=== PATIENT | female | born 1980 | race Caucasian/White ===

== ENCOUNTER 2016-06-17 13:42 | Emergency (ER) | payer MEDICAID ==
[~2016-06-17] VITALS: Ht 142.2 cm; Wt 69.0 kg
[~2016-06-17 13:42] MED LIST: AMIN1TAB; FERR27TA; PREN1TAB49
[2016-06-17 13:55] VITALS: Ht 142.2 cm; Wt 69.0 kg
[2016-06-17] MEDS ORDERED: GUAI120S26 PO (14:18)
[2016-06-17] MEDS ORDERED: IBUP-1542 PO (14:18)
--- NOTE | 2016-06-17 14:23 | ERD ---
ER Documentation Chief Complaint Date/Time DATE: 06/17/16 TIME: 14:20 Chief Complaint cough and congestion with fever & galvan x 3 days HPI 36-year-old female with no significant past medical history presents to the ED complaining of a productive cough and headache that started 3 days ago. States that her and son are also sick with similar symptoms. States that she has not taken any medications for her symptoms. Denies any fever, chills, body aches, dyspnea on exertion, orthopnea, leg swelling, chest pain, shortness of breath, abdominal pain, nausea, vomiting. States that she has had menopause for the last 4 years. ROS All systems reviewed and are negative except as per history of present illness. Medications Home Meds Active Scripts Mwhehepabuf-L-Bzrzrkizsn Hb* (Guaifenesin* DM Syrup) 120 Ml Syrup, 10 ML PO Q4H Y for COUGH, #120 ML Prov:PATO MCKEON PA-C 06/17/16 Ibuprofen* (Motrin*) 600 Mg Tab, 600 MG PO Q6, #30 TAB Prov:PATO MCKEON PA-C 06/17/16 Reported Medications Amino Acids/Calcium (Calcimin-300 Tablet) 1 Tab Tablet 03/22/10 Ferrous Sulfate (Iron) 1 Tab Tablet 03/22/10 Vits W-Ca,Fe,Fa(<1MG) () 1 Tab Tablet 03/22/10 Allergies Allergies: Coded Allergies: No Known Allergies (Verified Allergy, Mild, 02/09/10) PMhx/Soc History of Surgery: Yes () Hx Alcohol Use: No Hx Substance Use: No Hx Tobacco Use: No Physical Exam Vitals Vital Signs Date Time Temp Pulse Resp B/P Pulse Ox O2 Delivery O2 Flow Rate FiO2 06/17/16 13:55 97.9 82 18 133/74 98 Physical Exam Const: Cis-kvj-sadzlaijj, well-nourished. In no acute distress. Head: Atraumatic, normocephalic Eyes: Normal Conjunctiva without injection. No purulent discharge. PERRL. EOMI ENT: Normal external ear. Ear canal without erythema. Tympanic membrane pearly leyva without effusion or bulging. Nasal canal clear with normal turbinates. Moist oropharynx without tonsillar exudates. Non-erythematous pharynx. Uvula midline. No drooling. No trismus. Neck: Full range of motion. No meningismus. No cervical lymphadenopathy. Resp: Clear to auscultation bilaterally. No wheezing, rhonchi, rales, or crackles. No accessory muscle use. No retractions. Cardio: Regular rate and rhythm. No murmurs, rubs or gallops. Abd: Soft, non tender, non distended. Normal bowel sounds. No palpable masses. No rebound tenderness. No guarding. Skin: No petechiae or rashes Back: No midline tenderness. No CVA tenderness. Ext: No cyanosis, or edema. Neur: Awake and alert. Psych: Normal Mood and Affect Procedures/MDM This is a 36-year-old female with no significant past medical history presents to the ED complaining of a productive cough and headache. Patient is afebrile and nontoxic-appearing. Patient has normal vital signs. This patient presents to the ED with symptoms consistent with a viral acute upper respiratory infection. Patient is afebrile and has normal vital signs. Patient's physical exam include lungs which were clear to auscultation and a normal pulse oximetry. There is a low suspicion for pneumonia, atypical SC, cardiac tamponade , pneumothorax, pulmonary embolism, epiglottitis, otitis media, otitis externa, viral/strep pharyngitis, sinusitis, peritonsillar abscess, mastoiditis, retropharyngeal abscess, meningitis, sepsis, acute abdomen or other emergent conditions. Fluids, rest, and symptomatic treatment are recommended for the management of patient's symptoms. Discharge medications: Ibuprofen, guaifenesin DM Patient was instructed to return to the ED for any new or worsening symptoms. They should otherwise follow up with the primary care provider within 1-2 days. The patient's questions were answered at the time of discharge. Patient understood and agreed with discharge management. Departure Diagnosis: Primary Impression: Viral syndrome Condition: Stable Patient Instructions: Viral Syndrome (Adult) Referrals: COMMUNITY CLINICS YOU HAVE RECEIVED A MEDICAL SCREENING EXAM AND THE RESULTS INDICATE THAT YOU DO NOT HAVE A CONDITION THAT REQUIRES URGENT TREATMENT IN THE EMERGENCY DEPARTMENT. FURTHER EVALUATION AND TREATMENT OF YOUR CONDITION CAN WAIT UNTIL YOU ARE SEEN IN YOUR DOCTORS OFFICE WITHIN THE NEXT 1-2 DAYS. IT IS YOUR RESPONSIBILITY TO MAKE AN APPOINTMENT FOR FOLOW-UP CARE. IF YOU HAVE A PRIMARY DOCTOR --you should call your primary doctor and schedule an appointment IF YOU DO NOT HAVE A PRIMARY DOCTOR YOU CAN CALL OUR PHYSICIAN REFERRAL HOTLINE AT IF YOU CAN NOT AFFORD TO SEE A PHYSICIAN YOU CAN CHOSE FROM THE FOLLOWING [facility] [address] [facility] [address] [facility] [address] [facility] [address] [facility] [address] [facility]. [facility] [address] [facility]. [facility] YOU HAVE RECEIVED A MEDICAL SCREENING EXAM AND THE RESULTS INDICATE THAT YOU DO NOT HAVE A CONDITION THAT REQUIRES URGENT TREATMENT IN THE EMERGENCY DEPARTMENT. FURTHER EVALUATION AND TREATMENT OF YOUR CONDITION CAN WAIT UNTIL YOU ARE SEEN IN YOUR DOCTORS OFFICE WITHIN THE NEXT 1-2 DAYS. IT IS YOUR RESPONSIBILITY TO MAKE AN APPOINTMENT FOR FOLOW-UP CARE. IF YOU HAVE A PRIMARY DOCTOR --you should call your primary doctor and schedule and appointment IF YOU DO NOT HAVE A PRIMARY DOCTOR YOU CAN CALL OUR PHYSICIAN REFERRAL HOTLINE AT . IF YOU CAN NOT AFFORD TO SEE A PHYSICIAN YOU CAN CHOSE FROM THE FOLLOWING [facility] INSTITUTIONS: [facility] [place] [address] [place] [address] [facility] [address] [place] [address] [facility] [address] [place] [address] [facility] Additional Instructions: Visite a villareal royer roe para un EXAMEN.Regrese a estas instalaciones si no se mejora abilio esperbamos o abilio le gaylas. PATO MCKEON PA-C Jun 17, 2016 14:23
== END 2016-06-17 14:19 | disposition home or self-care (01) ==
LOC: E/R 13:42
DX: B34.9 Viral infection, unspecified (principal)
CPT/HCPCS: 99283

== ENCOUNTER 2016-12-01 07:17 | Emergency (ER) | payer MEDICAID ==
[~2016-12-01] VITALS: Ht 154.9 cm; Wt 67.0 kg
[~2016-12-01 07:17] MED LIST changes: +BUTA1CAP39 PO; +GUAI120S26 PO; +IBUP-1542 PO
[2016-12-01 07:20] VITALS: Ht 154.9 cm; Wt 67.0 kg
[2016-12-01] MEDS ORDERED: ONDANSETRON 4 MG INJ IV STA (07:34)
[2016-12-01] MEDS ORDERED: morphine 4 MG/ML VIAL IV STA (07:34)
[2016-12-01] MEDS ORDERED: FAMOTIDINE 20 MG INJ IV STA (07:34)
[2016-12-01 08:09] LABS: ADD SCAN DIFF NO
[2016-12-01 08:15] LABS: BASOPHILS % 0.3 % (0.0-2.0); EOSINOPHILS # 0.1 10^3/ul (0.0-0.5); EOSINOPHILS % 1.1 % (0.0-7.0); HEMOGLOBIN 14.5 g/dl (12.0-16.0); LYMPHOCYTES # 2.1 10^3/ul (0.8-2.9); LYMPHOCYTES % 33.9 % (15.0-51.0); MEAN CORPUSCULAR HEMOGLOBIN 28.5 pg (29.0-33.0); MEAN CORPUSCULAR HGB CONC 33.7 g/dl (32.0-37.0); MEAN CORPUSCULAR VOLUME 84.6 fl (82.0-101.0); MEAN PLATELET VOLUME 9.4 fl (7.4-10.4); MONOCYTE # 0.5 10^3/ul (0.3-0.9); MONOCYTES % 7.8 % (0.0-11.0); NEUTROPHIL # 3.5 10^3/ul (1.6-7.5); NEUTROPHILS % 56.6 % (39.0-77.0); PLATELET COUNT 261 10^3/UL (140-415); RED BLOOD COUNT 5.08 10^6/ul (4.20-5.40); RED CELL DISTRIBUTION WIDTH 11.9 % (11.5-14.5); WHITE BLOOD COUNT 6.2 10^3/ul (4.8-10.8)
[2016-12-01 08:22] LABS: ADD UMIC YES; UR ASCORBIC ACID NEGATIVE (NEGATIVE); UR BACTERIA FEW /HPF (NONE SEEN); UR BILIRUBIN (Dip) NEGATIVE (NEGATIVE); UR BLOOD (Dip) NEGATIVE (NEGATIVE); UR CLARITY SLIGHTLY CLOUDY (CLEAR); UR COLOR STRAW (YELLOW); UR GLUCOSE (Dip) NEGATIVE (NEGATIVE); UR KETONES (Dip) NEGATIVE (NEGATIVE); UR LEUKOCYTE ESTERASE (Dip) 1+ Leu/ul (NEGATIVE); UR NITRITE (Dip) NEGATIVE (NEGATIVE); UR RBC 0 /HPF (0-5); UR SPECIFIC GRAVITY (Dip) 1.009 (1.003-1.030); UR SQUAMOUS EPITHELIAL CELL FEW /HPF (FEW); UR TOTAL PROTEIN (Dip) NEGATIVE (NEGATIVE); UR UROBILINOGEN (Dip) NEGATIVE (NEGATIVE)
--- NOTE | 2016-12-01 08:42 | RADRPT ---
PROCEDURE: US Abdomen Limited . CLINICAL INDICATION: Abdominal pain TECHNIQUE: Multiple real-time images were acquired of the patient's right upper quadrant abdomen u tilizing a high resolution transducer. COMPARISON: None FINDINGS: The liver measures 18.6 cm and demonstrates a coarsened echogenicity. The gallbladder is filled with a moderate amount of bile. No shadowing echogenic stones or masses are seen in the gallbladder. T he gallbladder wall is not thickened at 1.0 mm. No pericholecystic fluid is noted. The common bile d uct measures 5.1 mm in diameter. The visualized portions of the proximal pancreas are unremarkable. The tail of the pancreas is not well visualized. Antegrade flow is seen in the portal vein. Right kidney measures 10.1 cm. Right kidney demonstrates a normal echogenicity. No hydronephrosis, masses or stones are noted. IMPRESSION: Diffuse fatty infiltration of a mildly enlarged liver. Tail of the pancreas not well visualized. If characterization of this structure is needed repeat exa m or CT/MRI is recommended. RPTAT: AA .Curry Young MD, MD Date Time Electronically viewed and signed by .Curry Young MD, MD on 12/01/2016 08:42 .P/
--- NOTE | 2016-12-01 08:49 | ERD ---
ER Documentation Chief Complaint Date/Time DATE: 12/01/16 TIME: 08:47 Chief Complaint RT UPPER QUADRANT PAIN X 4 DAYS WITH NAUSEA HPI This a 36-year-old female who presents emergency department today complaining of right-sided upper abdominal pain for the past 4 days and nausea and vomiting. States she is taking Pepto-Bismol with no improvement. States she does have some burning and pain with urination. Denies any fevers, diarrhea. ROS All systems reviewed and are negative except as per history of present illness. Medications Home Meds Active Scripts Acetaminophen* (Tylophen*) 500 Mg Capsule, 1 CAP PO Q6H Y for PAIN AND OR ELEVATED TEMP, #30 CAP Prov:ROLANDO KOENIG PA-C 12/01/16 Famotidine* (Pepcid*) 20 Mg Tablet, 20 MG PO BID for 10 Days, TAB Prov:ROLANDO KOENIG PA-C 12/01/16 Hydrocodone/Acetaminophen (Randolph 5-325 Tablet) 1 Each Tablet, 1 TAB PO Q6H Y for PAIN, #10 TAB Prov:ROLANDO KOENIG PA-C 12/01/16 Ondansetron Hcl* (Zofran*) 4 Mg Tablet, 4 MG PO Q6H for NAUSEA AND/OR VOMITING, #30 TAB Prov:ROLANDO KOENIG PA-C 12/01/16 Nitrofurantoin Monohyd Macrocr* (Macrobid*) 100 Mg Capsr, 100 MG PO BID for 7 Days, CAP Prov:ROLANDO KOENIG PA-C 12/01/16 Irgiwzjjhko-R-Drdsggqfav Hb* (Guaifenesin* DM Syrup) 120 Ml Syrup, 10 ML PO Q4H Y for COUGH, #120 ML Prov:PATO MCKEON PA-C 06/17/16 Ibuprofen* (Motrin*) 600 Mg Tab, 600 MG PO Q6, #30 TAB Prov:PATO MCKEON PA-C 06/17/16 Glionhxbhijtw-Iicjfwwnga-Ugcppems-Codeine* (Fioricet w/ Codeine*) [id number] 30MG Capsule, 1 CAP PO Q6H Y for PAIN LEVEL 1-5 for 5 Days, CAP Prov:HUGO MUIR NP 02/01/16 Reported Medications Amino Acids/Calcium (Calcimin-300 Tablet) 1 Tab Tablet 03/22/10 Ferrous Sulfate (Iron) 1 Tab Tablet 03/22/10 Vits W-Ca,Fe,Fa(<1MG) () 1 Tab Tablet 03/22/10 Allergies Allergies: Coded Allergies: No Known Allergies (Verified Allergy, Mild, 12/01/16) PMhx/Soc History of Surgery: Yes () Hx Alcohol Use: No Hx Substance Use: No Hx Tobacco Use: No Smoking Status: Never smoker Physical Exam Vitals Vital Signs Date Time Temp Pulse Resp B/P Pulse Ox O2 Delivery O2 Flow Rate FiO2 12/01/16 07:20 97.9 69 18 115/70 97 Physical Exam Const: No acute distress Head: Atraumatic Eyes: Normal Conjunctiva ENT: Normal External Ears, Nose and Mouth. Neck: Full range of motion..~ No meningismus. Resp: Clear to auscultation bilaterally Cardio: Regular rate and rhythm, no murmurs Abd: Soft, epigastric and right upper quadrant tenderness non distended. Normal bowel sounds. No right lower quadrant pain. No tenderness McBurney Skin: No petechiae or rashes Back: No midline or flank tenderness Ext: No cyanosis, or edema Neur: Awake and alert Psych: Normal Mood and Affect Result Diagram: 12/01/16 0743 12/01/16 0743 Results 24 hrs Laboratory Tests Test 12/01/16 07:43 White Blood Count 6.210^3/ul Red Blood Count 5.0810^6/ul Hemoglobin 14.5g/dl Hematocrit 43.0% Mean Corpuscular Volume 84.6fl Mean Corpuscular Hemoglobin 28.5pg Mean Corpuscular Hemoglobin Concent 33.7g/dl Red Cell Distribution Width 11.9% Platelet Count 78843^3/UL Mean Platelet Volume 9.4fl Neutrophils % 56.6% Lymphocytes % 33.9% Monocytes % 7.8% Eosinophils % 1.1% Basophils % 0.3% Nucleated Red Blood Cells % 0.0/100WBC Neutrophils # 3.510^3/ul Lymphocytes # 2.110^3/ul Monocytes # 0.510^3/ul Eosinophils # 0.110^3/ul Basophils # 0.010^3/ul Nucleated Red Blood Cells # 0.010^3/ul Urine Color STRAW Urine Clarity SLIGHTLY CLOUDY Urine pH 5.0 Urine Specific [place] 1.009 Urine Ketones NEGATIVEmg/dL Urine Nitrite NEGATIVEmg/dL Urine Bilirubin NEGATIVEmg/dL Urine Urobilinogen NEGATIVEmg/dL Urine Leukocyte Esterase 1+Caridad/ul Urine Microscopic RBC 0/HPF Urine Microscopic WBC 6/HPF Urine Squamous Epithelial Cells FEW/HPF Urine Bacteria FEW/HPF Urine Hemoglobin NEGATIVEmg/dL Urine Glucose NEGATIVEmg/dL Urine Total Protein NEGATIVEmg/dl Sodium Level 145mmol/L Potassium Level 3.9mmol/L Chloride Level 103mmol/L Carbon Dioxide Level 25mmol/L Anion Gap 21 Blood Urea Nitrogen 11mg/dl Creatinine 0.61mg/dl Glucose Level 94mg/dl Calcium Level 9.3mg/dl Total Bilirubin 0.3mg/dl Direct Bilirubin 0.00mg/dl Indirect Bilirubin 0.3mg/dl Aspartate Amino Transf (AST/SGOT) 42IU/L Alanine Aminotransferase (ALT/SGPT) 52IU/L Alkaline Phosphatase 78IU/L Total Protein 7.8g/dl Albumin 4.3g/dl Globulin 3.50g/dl Albumin/Globulin Ratio 1.22 Lipase 68U/L Current Medications Medications (Trade) Dose Ordered Sig/Kulwant Route PRN Reason Start Time Stop Time Status Last Admin Dose Admin Morphine Sulfate (morphine) 4 mg ONCE STAT IV 12/01/16 07:34 12/01/16 07:36 DC 12/01/16 07:53 Ondansetron HCl (Zofran Inj) 4 mg ONCE STAT IV 12/01/16 07:34 12/01/16 07:36 DC 12/01/16 07:52 Famotidine (Pepcid Iv) 20 mg ONCE STAT IV 12/01/16 07:34 12/01/16 07:36 DC 12/01/16 07:52 DIAGNOSTIC IMAGING REPORT Patient: AMELIA SILVER : 1980 Age: 36 Sex: F MR #: [id number] DOS: 12/01/16 0734 Ordering MD: ROLANDO KOENIG PA-C Location: E Room/Bed: PROCEDURE: US Abdomen Limited . CLINICAL INDICATION: Abdominal pain TECHNIQUE: Multiple real-time images were acquired of the patient's right upper quadrant abdomen utilizing a high resolution transducer. COMPARISON: None FINDINGS: The liver measures 18.6 cm and demonstrates a coarsened echogenicity. The gallbladder is filled with a moderate amount of bile. No shadowing echogenic stones or masses are seen in the gallbladder. The gallbladder wall is not thickened at 1.0 mm. No pericholecystic fluid is noted. The common bile duct measures 5.1 mm in diameter. The visualized portions of the proximal pancreas are unremarkable. The tail of the pancreas is not well visualized. Antegrade flow is seen in the portal vein. Right kidney measures 10.1 cm. Right kidney demonstrates a normal echogenicity. No hydronephrosis, masses or stones are noted. IMPRESSION: Diffuse fatty infiltration of a mildly enlarged liver. Tail of the pancreas not well visualized. If characterization of this structure is needed repeat exam or CT/MRI is recommended. RPTAT: AA .Curry Young MD, Date Time Electronically viewed and signed by .Curry Young MD, MD on 12/01/2016 08:42 .P/ CC: ROLANDO KOENIG PA-C Procedures/MDM Laboratory workup shows no elevated white blood cell count. She is not anemic. Platelets are within normal limits. Sodium is mildly elevated. Otherwise electrolytes are within normal limits. Liver enzymes are within normal limits. Bilirubin is within normal limits. Lipase within normal limits. Low suspicion for acute cholecystitis, gallstones, pancreatitis or acute surgical abdomen UA shows 1+ leukocyte esterase and 6 white blood cells. Patient did complain of some dysuria and therefore I give her prescription for Macrobid for possible urinary tract infection given her abdominal pain and nausea. Urine test is negative Ultrasound shows diffuse fatty infiltration of mildly enlarged liver. Gallbladder is filled with a moderate amount of bile. There is no shadowing echogenic stones or masses seen in the gallbladder. Gallbladder wall is not thickened there is no pericholecystic fluid. Common bile duct measures 5.1. The visualized portions of the proximal pancreas are unremarkable. Tail the pancreas is not well-visualized. Patient symptoms at this time is consistent with abdominal pain of uncertain etiology however may be related to possible urinary tract infection. Patient was given morphine and Zofran here in the emergency department. She will be given a prescription for short course of Randolph, Tylenol, Pepcid Zofran for home in addition to the Macrobid. At this time the patient is stable for discharge and outpatient management. Patient should follow up with their PCP in the next 1-2 days. She is given a list of community resources they may return to the emergency department sooner for any persistent or worsening of symptoms. Patient understood and agreed with the plan. Departure Diagnosis: Primary Impression: Abdominal pain Abdominal location: right upper quadrant Qualified Code: R10.11 - Right upper quadrant abdominal pain Additional Impression: UTI (urinary tract infection) Urinary tract infection type: site unspecified Hematuria presence: without hematuria Qualified Code: N39.0 - Urinary tract infection without hematuria, site unspecified Condition: ROLANDO Yanez PA-C Dec 01, 2016 08:49
[2016-12-01 08:50] LABS: ALBUMIN 4.3 g/dl (3.3-4.9); ALBUMIN/GLOBULIN RATIO 1.22; BILIRUBIN,INDIRECT 0.3 mg/dl (0-1.1); BILIRUBIN,TOTAL 0.3 mg/dl (0.2-1.3); CALCIUM 9.3 mg/dl (8.4-10.2); CREATININE 0.61 mg/dl (0.44-1.00); POTASSIUM 3.9 mmol/L (3.5-5.1); TOTAL PROTEIN 7.8 g/dl (6.1-8.1)
[2016-12-01] MEDS ORDERED: ONDA4TAB8 PO (09:07)
[2016-12-01] MEDS ORDERED: NITR-58 PO (09:07)
[2016-12-01] MEDS ORDERED: HYDR-906 PO (09:08)
[2016-12-01] MEDS ORDERED: FAMO-96 PO (09:08)
[2016-12-01] MEDS ORDERED: ACET500C5 PO (09:08)
== END 2016-12-01 09:26 | disposition home or self-care (01) ==
LOC: FTE 07:17
DX: R10.11 Right upper quadrant pain (principal); N39.0 Urinary tract infection, site not specified; R11.2 Nausea with vomiting, unspecified
CPT/HCPCS: 76705; 80053; 81001; 83690; 85025; J2270; J2405; Z7610; 36415; 96374; 96375

== ENCOUNTER 2017-06-14 18:45 | Emergency (ER) | END 2017-06-14 23:20 | disposition home or self-care (01) ==

== ENCOUNTER 2018-05-27 15:06 | Emergency (ER) | payer MEDICAID ==
[~2018-05-27] VITALS: Wt 68.5 kg
[~2018-05-27 15:06] MED LIST changes: +ACET500C5 PO; +CEPH-443 PO; +FAMO-96 PO; +HYDR-4011 PO; +NITR-58 PO; +ONDA4TAB8 PO
[2018-05-27] MEDS ORDERED: IBUPROFEN 600 MG TAB PO ONE (17:00)
[2018-05-27] MEDS ORDERED: CEPHALEXIN 500 MG CAP PO ONE (17:00)
[2018-05-27] MEDS ORDERED: CEPH-443 PO (18:50)
[2018-05-27] MEDS ORDERED: IBUP-1542 PO (18:50)
--- NOTE | 2018-05-27 18:52 | ERD ---
ER Documentation Chief Complaint Chief Complaint LEFT BREAST PAIN X 3 DAYS HPI This 38-year-old female presents with pain on the ear inferior aspect of her left breast for the last 3 days. She denies any history of trauma, redness or fevers. She denies breast-feeding. ROS All systems reviewed and are negative except as per history of present illness. Medications Home Meds Active Scripts Ibuprofen* (Motrin*) 600 Mg Tab, 600 MG PO Q6, #20 TAB Prov:VANIA AGGARWAL MD 05/27/18 Cephalexin* (Keflex*) 500 Mg Capsule, 500 MG PO QID for 7 Days, CAP Prov:VANIA AGGARWAL MD 05/27/18 Cephalexin* (Keflex*) 500 Mg Capsule, 500 MG PO QID for 5 Days, CAP Prov:CLEM JEAN PA-C 06/14/17 Acetaminophen* (Tylophen*) 500 Mg Capsule, 1 CAP PO Q6H PRN for PAIN AND OR ELEVATED TEMP, #30 CAP Prov:ROLANDO KOENIG PA-C 12/01/16 Famotidine* (Pepcid*) 20 Mg Tablet, 20 MG PO BID for 10 Days, TAB Prov:ROLANDO KOENIG PA-C 12/01/16 Hydrocodone/Acetaminophen ([place] 5-325 Tablet) 1 Each Tablet, 1 TAB PO Q6H PRN for PAIN, #10 TAB Prov:ROLANDO KOENIG PA-C 12/01/16 Ondansetron Hcl* (Zofran*) 4 Mg Tablet, 4 MG PO Q6H for NAUSEA AND/OR VOMITING, #30 TAB Prov:ROLANDO KOENIG PA-C 12/01/16 Nitrofurantoin Monohyd Macrocr* (Macrobid*) 100 Mg Capsr, 100 MG PO BID for 7 Days, CAP Prov:ROLANDO KOENIG PA-C 12/01/16 Nsbdomswqol-H-Olynnxezot Hb* (Guaifenesin* DM Syrup) 120 Ml Syrup, 10 ML PO Q4H PRN for COUGH, #120 ML Prov:PATO MCKEON PA-C 06/17/16 Ibuprofen* (Motrin*) 600 Mg Tab, 600 MG PO Q6, #30 TAB Prov:PATO MCKEON PA-C 06/17/16 Wypvncikohsja-Hclptjpsuq-Flatakft-Codeine* (Fioricet w/ Codeine*) [id number] Capsule, 1 CAP PO Q6H PRN for PAIN LEVEL 1-5 for 5 Days, CAP Prov:HUGO MUIRBhavna ESQUIVEL 02/01/16 Reported Medications Amino Acids/Calcium (Calcimin-300 Tablet) 1 Tab Tablet 03/22/10 Ferrous Sulfate (Iron) 1 Tab Tablet 03/22/10 Vits W-Ca,Fe,Fa(<1MG) () 1 Tab Tablet 03/22/10 Allergies Allergies: Coded Allergies: No Known Allergies (Verified Allergy, Mild, 06/14/17) PMhx/Soc Medical and Surgical Hx: pt denies Medical Hx, pt denies Surgical Hx History of Surgery: Yes () Anesthesia Reaction: No Hx Neurological Disorder: No Hx Respiratory Disorders: No Hx Cardiac Disorders: No Hx Psychiatric Problems: No Hx Miscellaneous Medical Probl: No Hx Alcohol Use: No Hx Substance Use: No Hx Tobacco Use: No Smoking Status: Never smoker Physical Exam Vitals Vital Signs Date Temp Pulse Resp B/P (MAP) Pulse Ox O2 O2 Flow FiO2 Time Delivery Rate 05/27/18 97.8 89 18 139/80 97 15:09 (99) Physical Exam Const: No acute distress Head: Atraumatic Eyes: Normal Conjunctiva ENT: Normal External Ears, Nose and Mouth. Neck: Full range of motion. No meningismus. Resp: Clear to auscultation bilaterally Cardio: Regular rate and rhythm, no murmurs Abd: Soft, non tender, non distended. Normal bowel sounds Skin: No petechiae or rashes. Tenderness at 6:00 at the fold of left breast. Possible soft tissue swelling without erythema, fluctuance. No nipple discharge. Back: No midline or flank tenderness Ext: No cyanosis, or edema Neur: Awake and alert Psych: Normal Mood and Affect Results 24 hrs Laboratory Tests Test 05/27/18 17:03 POC Beta HCG, Qualitative NEGATIVE Current Medications Medications Dose Sig/Kulwant Start Time Status Last (Trade) Ordered Route PRN Stop Time Admin Dose Reason Admin Ibuprofen 600 mg ONCE ONCE 05/27/18 DC 05/27/18 (Motrin) PO 17:00 17:02 05/27/18 17:01 Cephalexin 500 mg ONCE ONCE 05/27/18 DC 05/27/18 (Keflex) PO 17:00 17:01 05/27/18 17:01 Procedures/MDM Left breast ultrasound shows no evidence of masses or abscess. Patient has breast pain of uncertain etiology. She has mild swelling and will be treated empirically for mild cellulitis or mastitis with Keflex, ibuprofen, recommendations for primary care follow-up for further evaluation for persistent symptoms. The patient was stable with no new complaints during the ER course. Clinically, there is no current evidence to suggest meningitis, sepsis, acute abdomen, pneumonia, stroke, acute coronary syndrome, pulmonary embolism, aortic dissection or any other emergent condition appearing to require further evaluation or hospitalization. Patient counseled regarding my diagnostic impression and care plan. Prior to discharge all questions answered. Pt agrees with treatment plan and understands strict return precautions. Pt is instructed to follow up with primary care provider within 24-48 hours. Precautionary in structions provided including instructions to return to the ER if not improving or for any worsening or changing symptoms or concerns. Departure Diagnosis: Primary Impression: Breast pain Condition: Stable Patient Instructions: Mastitis Additional Instructions: Examines normal hoy. VAMOS A TRATAR PARA INFECCION. Cheque otro vez con villareal doctor primario PARA MAS EVALUACON en el proximo mulligan or regresa para mas o nueva simptomas. VANIA AGGARWAL MD May 27, 2018 18:52
[2018-05-27 18:56] VITALS: BP 130/81; PULSE 82; RESP 18
== END 2018-05-27 18:57 | disposition home or self-care (01) ==
LOC: FTE 15:06
DX: N64.4 Mastodynia (principal)
CPT/HCPCS: 76642; 81025; Z7502; Z7610